=== PATIENT | female | born 1990 | race Caucasian/White ===

== ENCOUNTER → 2018-04-20 18:37 | Outpatient (CLI) | payer OTHER, SELFPAY ==
--- NOTE | 2018-04-20 18:44 | US_ITS ---
STUDY: ULTRASOUND OF THE FEMALE PELVIS REASON FOR EXAM: Female, 28 years old. Left pelvic pain LMP: March 16, 2018 TECHNIQUE: Transverse and longitudinal imaging of the pelvis was obtained transabdominally and transvaginally using real-time ultrasound. COMPARISON: May 05, 2017 FINDINGS: The uterus is anteverted and is in a midline position. The uterus measures 6.8 x 1.9 x 3.8 cm. The cervix is unremarkable. The endometrium measures 2.1 mm in thickness, and is hyperechoic. There is no demonstrated endometrial mass. There is no demonstrated myometrial mass. I.U.D. - The patient does not have an I.U.D. The right ovary is visualized. The right ovary measures 3.6 x 1.8 x 1.9 cm. There are follicles in the right ovary without a dominant cyst. There is normal arterial and normal venous vascularity. There is no visualized right adnexal mass or complex lesion. The left ovary is visualized. The left ovary measures 3.4 x 1.6 x 2.4 cm. There are follicles in the left ovary without a dominant cyst. There is normal arterial and normal venous vascularity. There is no visualized left adnexal mass or complex lesion. There is a moderate amount of fluid in the cul-de-sac. No significant abnormalities are seen on limited visualization of the urinary bladder. US/Pelvic (Non ) IMPRESSION: No abnormalities are seen in the uterus or ovaries. There are numerous follicles in both ovaries. There is moderate nonspecific fluid in the pelvis. Electronically Signed: Va Ring MD at 22:21 EDT Tel Direct: [phone], Service support ,
--- NOTE | 2018-04-20 18:58 | US_ITS ---
STUDY: ULTRASOUND OF THE FEMALE PELVIS REASON FOR EXAM: Female, 28 years old. Left pelvic pain LMP: March 16, 2018 TECHNIQUE: Transverse and longitudinal imaging of the pelvis was obtained transabdominally and transvaginally using real-time ultrasound. COMPARISON: May 05, 2017 FINDINGS: The uterus is anteverted and is in a midline position. The uterus measures 6.8 x 1.9 x 3.8 cm. The cervix is unremarkable. The endometrium measures 2.1 mm in thickness, and is hyperechoic. There is no demonstrated endometrial mass. There is no demonstrated myometrial mass. I.U.D. - The patient does not have an I.U.D. The right ovary is visualized. The right ovary measures 3.6 x 1.8 x 1.9 cm. There are follicles in the right ovary without a dominant cyst. There is normal arterial and normal venous vascularity. There is no visualized right adnexal mass or complex lesion. The left ovary is visualized. The left ovary measures 3.4 x 1.6 x 2.4 cm. There are follicles in the left ovary without a dominant cyst. There is normal arterial and normal venous vascularity. There is no visualized left adnexal mass or complex lesion. There is a moderate amount of fluid in the cul-de-sac. No significant abnormalities are seen on limited visualization of the urinary bladder. US/Transvaginal Non- IMPRESSION: No abnormalities are seen in the uterus or ovaries. There are numerous follicles in both ovaries. There is moderate nonspecific fluid in the pelvis. Electronically Signed: Va Ring MD at 22:21 EDT Tel Direct: [phone], Service support ,
== END ==
PROVIDERS: Family Provider Family Medicine; PCP Family Medicine; Visit Provider Obstetrics & Gynecology
DX: R10.2 Pelvic and perineal pain (principal)
CPT/HCPCS: 76830; 76856; 93976

== ENCOUNTER → 2018-05-31 13:43 | Outpatient (CLI) | payer OTHER, SELFPAY ==
[2018-06-06 12:32] LABS: HPV Reflexed? NOT INDICATED
== END ==
PROVIDERS: Visit Provider Obstetrics & Gynecology
DX: Z12.4 Encounter for screening for malignant neoplasm of cervix (principal)
CPT/HCPCS: 88175; G0145